=== PATIENT | female | born 1995 | race Caucasian/White ===

== ENCOUNTER 2016-07-08 14:56 | Emergency (ER) | payer OTHER ==
[~2016-07-08] VITALS: Ht 160 cm; Wt 80.3 kg
[~2016-07-08 14:56] MED LIST: AMOX500T3 PO; LXP/20 PO; VNTHFA/IN INH
[2016-07-08 15:04] VITALS: TEMP 37.3; Ht 160 cm; Wt 80.3 kg
--- NOTE | 2016-07-08 16:22 | EMERGENCY ROOM VISIT NOTE ---
History First contact with patient: 16:02 Chief Complaint: RESPIRATORY PROBLEMS Stated Complaint: UPPER RESPIRATORY PROBLEMS Nursing Triage Summary: Nasal congestion, coughing up dark green phlegm, SOB, Chest hurts. History of Present Illness The patient is a 21 year old female who presents to the Emergency Room with complaints of upper respiratory symptoms. The patient reports that she has had a cough, nasal congestion and shortness of breath for the past 2 days. She states that her cough is productive of a dark green phlegm. She states that she has had some central chest pain with cough. She rates her discomfort a 3/ 10. She is taking Tylenol at home for her symptoms without relief. She denies any fevers. She did not receive a flu vaccine this year. She denies neck pain , headache, sore throat, abdominal pain, nausea or vomiting. Review of Systems A complete 10-point Review of Systems was discussed with the patient, with pertinent positives and negatives listed in the History of Present Illness. All remaining Review of Systems questions can be considered negative unless otherwise specified. Past Medical/Surgical History Medical Problems: (1) ACUTE APPENDICITIS NOS (2) Acute otitis media, bilateral (3) Amniotic fluid leaking (4) Appendectomy (5) Dental caries (6) Headache (7) Influenza-like symptoms (8) Normal delivery at term (9) Pain, dental (10) hemorrhage, third stage, condition (11) Sore throat Family History Cancer Diabetes mellitus Heart disease Hypertension Social History Smoking Status: Current Every Day Smoker Alcohol Use: none Drug Use: none Marital Status: in relationship Housing Status: lives with significant other Occupation Status: employed Current/Historical Medications Scheduled Amoxicillin (Amoxil), 1 TAB PO TID Escitalopram Oxalate (Escitalopram Oxalate), 20 MG PO DAILY Methylprednisolone (Medrol Dosepak), 0 PO DAILY Scheduled PRN Albuterol Hfa (Ventolin Hfa), 2 PUFFS INH Q6 PRN for Shortness of Breath Allergies Coded Allergies: Azithromycin (Verified Allergy, Mild, 07/08/16) Uncoded Allergies: TOMATO SAUCE (Allergy, Intermediate, HIVES, 02/11/13) Physical Exam Vital Signs Date Time Temp Pulse Resp B/P Pulse Ox O2 Delivery O2 Flow Rate FiO2 07/08/16 18:06 80 122/81 98 07/08/16 15:06 98 Room Air 07/08/16 15:04 37.3 83 18 129/90 99 Room Air Physical Exam VITALS: Vitals are noted on the nurse's note and reviewed by myself. Vital signs stable. GENERAL: This is a 21-year-old female, in no acute distress, nondiaphoretic, well-developed well-nourished. SKIN: No rashes. HEENT: Normocephalic. PERRLA. EOMI. Nares patent. Mucous membranes moist. Neck is supple without nuchal rigidity. HEART: Regular rate and rhythm without murmurs gallops or rubs. LUNGS: Clear to auscultation bilaterally without wheezes, rales or rhonchi. No retractions or accessory muscle use. ABDOMEN: Positive bowel sounds x 4. Soft, nontender to palpation. NEURO: Patient was alert and oriented to person place and time. Medical Decision & Procedures ER Provider Diagnostic Interpretation: CHEST 2 VIEWS ROUTINE CLINICAL HISTORY: cough dyspnea COMPARISON STUDY: 04/03/2014 FINDINGS: The bones soft tissues and hemidiaphragms are normal. The cardiomediastinal silhouette is normal. The lungs are clear. The pulmonary vasculature is normal. IMPRESSION: Negative chest. Laboratory Results Test 07/08/16 16:20 Influenza Type A Antigen Neg for Influ A (NEG) Influenza Type B Antigen Neg for Influ B (NEG) Medical Decision Differential diagnosis includes pneumonia, upper respiratory infection, influenza, among others. The patient was evaluated as above. Labs were drawn and IV access was obtained. Imaging studies were performed and read by radiology as above. The patient was reassessed multiple times during their stay in the emergency department and remained in stable condition. The patient is a 21-year-old female who presents today complaining of respiratory symptoms. Her vital signs are within normal limits and her physical exam is unremarkable. Her lungs are clear. Chest x-ray showed no evidence of pneumonia. Influenza was negative. The patient likely has an acute bronchitis. She was given a prescription for amoxicillin and a Medrol Dosepak but was encouraged to wait a few days to see her symptoms improved before beginning this. She will return for worsening symptoms, otherwise will follow-up with her primary care provider. Based on the patient's presentation, lab results, and imaging studies, I feel the patient is stable for outpatient treatment. Discharge instructions were reviewed with the patient. The patient verbalized understanding of my assessment and treatment plan and was discharged home in good condition. Impression Primary Impression: Upper respiratory infection Departure Information Dispostion Home / Self-Care Condition GOOD Prescriptions Amoxicillin (AMOXIL) 500 Mg Tab 1 TAB PO TID for 7 Days, #21 TAB Prov: Bina Mills PA-C 07/08/16 Methylprednisolone (MEDROL DOSEPAK) 4 Mg [place] 0 PO DAILY, #1 PKT Prov: Bina Mills PA-C 07/08/16 Referrals Colten Palomino M.D. (PCP) Patient Instructions My [facility] Additional Instructions You were prescribed Zithromax to be taken as prescribed. This is an antibiotic. All antibiotics have the potential to cause diarrhea. Stop this medication and contact a medical provider if you were to develop any significant adverse side effects including: wheezing, shortness of breath, passing out, vomiting, or a diffuse rash. Always take antibiotics as directed and COMPLETE the ENTIRE course regardless of the improvement of your symptoms. You have been prescribed a Medrol Dosepak. This is a steroid which will help decrease your inflammation. Take the medicine as prescribed. Take the ENTIRE 6 day course of the steroids. Begin taking these medications in 2-3 days if your symptoms do not start to improve. For pain control, you can use the following [id number] medicines (if >12 yo): - Regular strength (325mg/tab) Tylenol (acetaminophen) 2 tabs every 4-6 hours as needed. Do not exceed 12 tablets in a 24 hour period. Avoid taking more than 4 grams (4000 mg) of Tylenol per day. This includes any other sources of acetaminophen you may take on a regular basis. - Regular strength (200 mg/tab) Advil (ibuprofen) 1-2 tabs every 4-6 hours as needed. Do not exceed a dose of 3200 mg per day. Return to the emergency department with worsening shortness of breath, high fevers or any other new/concerning symptoms. Problem Qualifiers Primary Impression: Upper respiratory infection URI type: unspecified URI Qualified Codes: J06.9 - Acute upper respiratory infection, unspecified
--- NOTE | 2016-07-08 16:46 | DIAGNOSTIC IMAGING REPORT ---
CHEST 2 VIEWS ROUTINE CLINICAL HISTORY: cough dyspnea COMPARISON STUDY: 04/03/2014 FINDINGS: The bones soft tissues and hemidiaphragms are normal. The cardiomediastinal silhouette is normal. The lungs are clear. The pulmonary vasculature is normal. IMPRESSION: Negative chest. Electronically signed by: Colten Miranda M.D. 07/08/2016 4:45 PM Dictated Date/Time: 07/08/2016 4:45 PM
[2016-07-08] MEDS ORDERED: METH4PAK PO (17:21)
[2016-07-08] MEDS ORDERED: AZITTAB PO (17:21)
[2016-07-08] MEDS ORDERED: AMOX500T3 PO (17:56)
[2016-07-08 18:06] VITALS: BP 122/81; PULSE 80; O2SAT 98
== END 2016-07-08 18:07 | disposition home or self-care (01) ==
LOC: C.EDB 14:57 → C.EDC 18:07
DX: J06.9 Acute upper respiratory infection, unspecified (principal); F17.210 Nicotine dependence, cigarettes, uncomplicated; Z79.899 Other long term (current) drug therapy

== ENCOUNTER 2016-12-30 05:38 | Emergency (ER) | payer OTHER ==
[~2016-12-30] VITALS: Ht 160 cm; Wt 78.9 kg
[2016-12-30 05:42] VITALS: BP 128/74; PULSE 78; TEMP 37; O2SAT 100; Ht 160 cm; Wt 78.9 kg
[2016-12-30] MEDS ORDERED: KETOROLAC TROMETHAMINE 60 MG/2 ML VIAL IM STA (05:57)
[2016-12-30] MEDS ORDERED: OXYCODONE IR HOME PACK PO ONE (06:00)
[2016-12-30] MEDS ORDERED: ACET325T96 PO (06:05)
[2016-12-30] MEDS ORDERED: VNTHFA/IN INH (06:05)
--- NOTE | 2016-12-30 06:11 | EMERGENCY ROOM VISIT NOTE ---
History First contact with patient: 05:47 Chief Complaint: BACK PAIN Stated Complaint: SEVERE LOWER BACK PAIN History of Present Illness The patient is a 21 year old female who presents to the Emergency Room with complaints of low back pain for the past week described as aching, ranging in severity 7 out of 10. Patient has tried BenGay and Motrin with minimal improvement of symptoms. Patient has been lifting her child more who is getting rather large. Patient denies fall, trauma, loss of bowel or bladder control, saddle anesthesia, IV drug abuse, fever, chills, leg weakness. Patient states movement makes it worse and nothing makes it better. No direct injury to the area. Patient denies chest pain, dyspnea, abdominal pain, urinary symptoms. Review of Systems See HPI for pertinent positives & negatives. A total of 10 systems reviewed and were otherwise negative. Past Medical/Surgical History Medical Problems: (1) ACUTE APPENDICITIS NOS (2) Acute otitis media, bilateral (3) Amniotic fluid leaking (4) Appendectomy (5) Dental caries (6) Headache (7) Influenza-like symptoms (8) Normal delivery at term (9) Pain, dental (10) hemorrhage, third stage, condition (11) Sore throat Family History Cancer Diabetes mellitus Heart disease Hypertension Social History Smoking Status: Current Every Day Smoker Alcohol Use: none Drug Use: none Marital Status: in relationship Housing Status: lives with significant other Occupation Status: employed Current/Historical Medications Scheduled Amoxicillin (Amoxil), 1 TAB PO TID Escitalopram Oxalate (Escitalopram Oxalate), 20 MG PO DAILY Scheduled PRN Albuterol Hfa (Ventolin Hfa), 2 PUFFS INH Q6 PRN for Shortness of Breath Physical Exam Vital Signs Date Time Temp Pulse Resp B/P (MAP) Pulse Ox O2 Delivery O2 Flow Rate FiO2 12/30/16 05:42 37.0 78 18 128/74 100 Room Air Physical Exam VITALS: Vitals are noted on the nurse's note and reviewed by myself. Vital signs stable. GENERAL: Pleasant female ambulating without difficulties, in no acute distress, nondiaphoretic, well-developed well-nourished. SKIN: Capillary reflex less than 2 seconds. HEENT: Normocephalic. PERRLA. EOMI. Nares patent. Mucous membranes moist. Neck is supple without nuchal rigidity. HEART: Regular rate and rhythm without murmurs gallops or rubs. LUNGS: Clear to auscultation bilaterally without wheezes, rales or rhonchi. No retractions or accessory muscle use. ABDOMEN: Positive bowel sounds x 4. Normal tympanic percussion. Soft, nontender, without masses or organomegaly. Encarnacion sign negative. No guarding or rebound tenderness. No CVA tenderness MUSCULOSKELETAL: No gross musculoskeletal defects. No pedal edema. No calf tenderness. No thoracic or lumbar tenderness on exam. Paraspinal muscles slightly tender to palpation. Negative straight leg raise. NEURO: Patient was alert and oriented to person place and time. Normal sensation to light and sharp touch. Deep tendon reflexes 2+ patella. No focal neurological deficits. Medical Decision & Procedures ED Course Prior records/ancillary studies reviewed. Triage Nursing notes reviewed. Additional history obtained from family. The patient's history was concerning for back pain. Differential diagnosis: Etiologies such as musculoskeletal, disc herniation, fracture, aortic disease, metastatic disease, cord compression, discitis, infection, renal colic, gastrointestinal, acute exacerbation of chronic back pain, sciatica, cauda equina, as well as others were entertained. Physical findings: As above. No focal neurologic findings noted. ER treatment provided: Toradol, OxyIR On reassessment the patient felt better. Diagnostics interpreted by me: deferred This appears to be consistent with lumbar strain. Patient was neurovascular and neurologically intact. She is well-appearing. She was advised to do course raking activities like yoga interpreted's and to do physical therapy. She is advised to take anti-inflammatories and to stretch the area out and to always lift properly. She is advised follow-up family care in a few days or here in the ER sooner for severe pain, numbness, tingling, difficulty ambulating , worsening signs or symptoms or as needed.. The patient's physical examination and detailed history did not reveal any red flags for back pain such as those listed in the differential diagnosis. Therefore advanced diagnostics and consultations were felt to be unwarranted. By the evaluation outlined above emergent etiologies such as fracture, aortic disease, metastatic disease, infection, renal colic, gastrointestinal, cord compression, cauda equina, as well as others were deemed relatively unlikely. The pt informed about the findings as listed above. All questions were answered and pleased with the treatment. Return instructions were outlined and the patient was discharged in stable condition. Outpatient prescription management: Oxy IR 5mg 1-2 po Q4 hrs prn HP Referral: The patient was referred back to primary care physician for follow-up in 2 to 3 days for a recheck of the current condition. Medical Decision As above Medication Reconcilliation Current Medication List: was personally reviewed by me Blood Pressure Screening Patient's blood pressure: Normal blood pressure Impression Primary Impression: Strain of lumbar region Departure Information Referrals No Doctor, Assigned (PCP) Patient Instructions [facility] Problem Qualifiers Primary Impression: Strain of lumbar region Encounter type: initial encounter Qualified Codes: S39.012A - Strain of muscle, fascia and tendon of lower back, initial encounter
== END 2016-12-30 06:10 | disposition home or self-care (01) ==
LOC: C.EDB 05:39
DX: S39.012A Strain of muscle, fascia and tendon of lower back, initial encounter (principal); X58.XXXA Exposure to other specified factors, initial encounter; F17.200 Nicotine dependence, unspecified, uncomplicated; Z86.19 Personal history of other infectious and parasitic diseases; Z79.899 Other long term (current) drug therapy; Z80.9 Family history of malignant neoplasm, unspecified; Z83.3 Family history of diabetes mellitus; Z82.49 Family history of ischemic heart disease and other diseases of the circulatory system

== ENCOUNTER → 2017-05-01 | Outpatient (CLI) | payer OTHER ==
[~2017-05-01] MED LIST changes: +ACET325T96 PO; -AMOX500T3 PO
[2017-05-01 16:28] LABS: GTGD 50 Grams
== END | disposition home or self-care (01) ==
LOC: C.LAB1850 14:50
PROVIDERS: ATTEND Obstetrics & Gynecology
DX: Z34.82 Encounter for supervision of other normal pregnancy, second trimester (principal)

== ENCOUNTER → 2017-08-01 | Outpatient (CLI) | payer OTHER ==
[~2017-08-01] MED LIST changes: +ACET-1693 PO; -ACET325T96 PO
[2017-08-01 13:16] LABS: HEMATOCRIT 31.8 % (37-47); HEMOGLOBIN 10.8 g/dL (12.0-16.0)
== END | disposition home or self-care (01) ==
LOC: C.LAB1850 11:52
PROVIDERS: ATTEND Obstetrics & Gynecology
DX: Z34.83 Encounter for supervision of other normal pregnancy, third trimester (principal)

== ENCOUNTER → 2017-09-14 | Outpatient (CLI) | payer OTHER ==
[~2017-09-14] MED LIST changes: +AMOX875T PO; +FERR1TAB23 PO; +PRENTAB26 PO
== END | disposition home or self-care (01) ==
LOC: C.LABSPEC 15:49
PROVIDERS: ATTEND Obstetrics & Gynecology
DX: Z34.83 Encounter for supervision of other normal pregnancy, third trimester (principal); Z3A.00 Weeks of gestation of pregnancy not specified

== ENCOUNTER 2017-09-16 17:31 | Outpatient (CLI) | payer OTHER ==
[~2017-09-16] VITALS: Ht 160 cm; Wt 78.5 kg
[~2017-09-16 17:31] MED LIST changes: -AMOX875T PO; -FERR1TAB23 PO; -PRENTAB26 PO
[2017-09-16 18:31] VITALS: Ht 160 cm; Wt 78.5 kg
[2017-09-16] MEDS ORDERED: FERR1TAB23 PO (18:31)
[2017-09-16] MEDS ORDERED: PRENTAB26 PO (18:31)
[2017-09-16] MEDS ORDERED: AMOX875T PO (20:51)
== END 2017-09-16 18:28 | disposition other institution (70) ==
LOC: C.OPB 17:31 → C.LD 17:32 → C.OPB 18:28
PROVIDERS: ATTEND Obstetrics & Gynecology
DX: O99.89 Other specified diseases and conditions complicating pregnancy, childbirth and the puerperium (principal); R51 Headache; Z3A.36 36 weeks gestation of pregnancy

== ENCOUNTER 2017-09-16 18:35 | Emergency (ER) | payer OTHER ==
[~2017-09-16] VITALS: Ht 160 cm; Wt 78.6 kg
[~2017-09-16 18:35] MED LIST changes: +FERR1TAB23 PO; +PRENTAB26 PO
[2017-09-16 18:39] VITALS: TEMP 36.6; Ht 160 cm; Wt 78.6 kg
--- NOTE | 2017-09-16 18:56 | EMERGENCY ROOM VISIT NOTE ---
History Report prepared by Bowen: Henrietta Berman Under the Supervision of: Dr. Duy Shea D.O. First contact with patient: 18:52 Chief Complaint: FACIAL PAIN/INJURY Stated Complaint: SWELLING ON RIGHT SIDE OF FACE, HEADACHE, VISION History of Present Illness The patient is a 22 year old female who presents to the Emergency Room with complaints of right-sided facial swelling. This is been present for the past 2 days. She notes that she has intermittent headaches for the past 2 days along with intermittent flashing lights. She is 8 months months . Headache currently is a 1 out of 10. She was up on OB floor and was placed on the monitor and had a urine done without protein. She was sent down here for further evaluation. She has no dental pain. Able to swallow without difficulty. No fevers. No other chest pain, shortness breath, nausea vomiting or diarrhea. No vaginal bleeding. She does intermittently see spots in her visual thompson but this is only been present over the past 2 days. Per the patient she was sent down here to rule out possible preeclampsia. Nothing makes the swelling better or worse. She has no other complaints. No dental pain. 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 Review of Systems See HPI for pertinent positives & negatives. A total of 10 systems reviewed and were otherwise negative. Past Medical & Surgical Medical Problems: (1) 36 to 37 weeks gestation of (2) ACUTE APPENDICITIS NOS (3) Acute otitis media, bilateral (4) Amniotic fluid leaking (5) Appendectomy (6) Dental caries (7) Headache (8) Headache (9) Influenza-like symptoms (10) Normal delivery at term (11) Pain, dental (12) hemorrhage, third stage, condition (13) Sore throat Family History Cancer Diabetes mellitus Heart disease Hypertension Social History Smoking Status: Current Every Day Smoker Alcohol Use: none Drug Use: none Marital Status: in relationship Housing Status: lives with significant other Occupation Status: employed Current/Historical Medications Scheduled Amoxicillin & Pot Clavulanate (Augmentin 875-125 mg), 875 MG PO BID Ferrous Sulfate (Iron), PO DAILY Multivit/Min/Iron/Fol Ac/Pren ( Vitamin), 1 TAB PO DAILY Scheduled PRN Acetaminophen Tab (Tylenol), 650 MG PO DIRECTED PRN for Pain Allergies Coded Allergies: Azithromycin (Verified Allergy, Mild, 09/16/17) Uncoded Allergies: TOMATO SAUCE (Allergy, Intermediate, HIVES, 02/11/13) Physical Exam Vital Signs Date Time Temp Pulse Resp B/P (MAP) Pulse Ox O2 Delivery O2 Flow Rate FiO2 09/16/17 20:58 68 18 107/60 100 09/16/17 20:20 68 18 107/60 100 Room Air 09/16/17 18:39 36.6 96 20 108/67 99 Room Air Physical Exam GENERAL: Sitting up in bed, alert, well appearing, well nourished, no distress, non-toxic EYE EXAM: normal conjunctiva. PERRL and EOM's intact. FACE: right sided facial swelling. No erythema or induration. OROPHARYNX: no exudate, no erythema, lips, buccal mucosa, and tongue normal and mucous membranes are moist. Poor dentition. NECK: supple, no nuchal rigidity, no adenopathy, non-tender LUNGS: Clear to auscultation. Normal chest wall mechanics HEART: no murmurs, S1 normal and S2 normal ABDOMEN: abdomen soft, non-tender, normo-active bowel sounds, no masses, no rebound or guarding. Gravid uterus up to xiphoid BACK: Back is symmetrical on inspection and there is no deformity, no midline tenderness, no CVA tenderness. SKIN: no rashes and no bruising UPPER EXTREMITIES: upper extremities are grossly normal. LOWER EXTREMITIES: Calves are equal bilaterally NEURO EXAM: Normal sensorium, cranial nerves II-XII intact, normal speech, no weakness of arms, no weakness of legs. No drift. Finger to nose intact. Gross sensation intact. Medical Decision & Procedures ER Provider Diagnostic Interpretation: Radiology results as stated below per my review and the radiologist's interpretation: FACIAL BONES-MXILLOFAC WITHOUT CT DOSE: 603.08 mGy.cm HISTORY: Edema swelling r side of face TECHNIQUE: Multiaxial CT images of the maxillofacial region were performed and reformatted in the coronal plane without the use of contrast. A dose lowering technique was utilized adhering to the principles of ALARA. COMPARISON: None. FINDINGS: The visualized cervical spine, skull base, pterygoid plates, nasal bones, lamina papyracea, orbital floors, mandible, and zygomatic arches are intact. No fractures. The orbits are unremarkable. IMPRESSION: No fractures within the maxillofacial region. No abnormal mass or collection. Cortical margins of the mandible and maxilla are unremarkable The above report was generated using voice recognition software. It may contain grammatical, syntax or spelling errors. Electronically signed by: Colten Miranda M.D. 09/16/2017 7:29 PM Laboratory Results 09/16/17 19:04 Red Blood Count 4.07, Mean Corpuscular Volume 87.7, Mean Corpuscular Hemoglobin 29.5, Mean Corpuscular Hemoglobin Concent 33.6, Mean Platelet Volume 11.0, Neutrophils (%) (Auto) 72.3, Lymphocytes (%) (Auto) 21.1, Monocytes (%) (Auto) 5.0, Eosinophils (%) (Auto) 0.8, Basophils (%) (Auto) 0.2, Neutrophils # (Auto) 9.23, Lymphocytes # (Auto) 2.69, Monocytes # (Auto) 0.64, Eosinophils # (Auto) 0.10, Basophils # (Auto) 0.02 09/16/17 19:04 Test 09/16/17 19:04 09/16/17 20:20 White Blood Count 12.76 K/uL (4.8-10.8) Red Blood Count 4.07 M/uL (4.2-5.4) Hemoglobin 12.0 g/dL (12.0-16.0) Hematocrit 35.7 % (37-47) Mean Corpuscular Volume 87.7 fL (80-100) Mean Corpuscular Hemoglobin 29.5 pg (25-34) Mean Corpuscular Hemoglobin Concent 33.6 g/dl (32-36) Platelet Count 292 K/uL (130-400) Mean Platelet Volume 11.0 fL (7.4-10.4) Neutrophils (%) (Auto) 72.3 % Lymphocytes (%) (Auto) 21.1 % Monocytes (%) (Auto) 5.0 % Eosinophils (%) (Auto) 0.8 % Basophils (%) (Auto) 0.2 % Neutrophils # (Auto) 9.23 K/uL (1.4-6.5) Lymphocytes # (Auto) 2.69 K/uL (1.2-3.4) Monocytes # (Auto) 0.64 K/uL (0.11-0.59) Eosinophils # (Auto) 0.10 K/uL (0-0.5) Basophils # (Auto) 0.02 K/uL (0-0.2) RDW Standard Deviation 41.9 fL (36.4-46.3) RDW Coefficient of Variation 13.0 % (11.5-14.5) Immature Granulocyte % (Auto) 0.6 % Immature Granulocyte # (Auto) 0.08 K/uL (0.00-0.02) Anion Gap 5.0 mmol/L (3-11) Est Creatinine Clear Calc Drug Dose 138.9 ml/min Estimated GFR () 146.3 Estimated GFR (Non- 126.2 BUN/Creatinine Ratio 9.2 (10-20) Calcium Level 8.3 mg/dl (8.5-10.1) Total Bilirubin 0.3 mg/dl (0.2-1) Direct Bilirubin < 0.1 mg/dl (0-0.2) Aspartate Amino Transf (AST/SGOT) 24 U/L (15-37) Alanine Aminotransferase (ALT/SGPT) 27 U/L (12-78) Alkaline Phosphatase 194 U/L (45-117) Total Protein 6.7 gm/dl (6.4-8.2) Albumin 2.7 gm/dl (3.4-5.0) Lipase 68 U/L (73-393) Urine Color YELLOW Urine Appearance CLEAR (CLEAR) Urine pH 7.5 (4.5-7.5) Urine Specific [place] 1.011 (1.000-1.030) Urine Protein NEG (NEG) Urine Glucose (UA) NEG (NEG) Urine Ketones TRACE (NEG) Urine Occult Blood NEG (NEG) Urine Nitrite NEG (NEG) Urine Bilirubin NEG (NEG) Urine Urobilinogen NEG (NEG) Urine Leukocyte Esterase LARGE (NEG) Urine WBC (Auto) 10-30 /hpf (0-5) Urine RBC (Auto) 0-4 /hpf (0-4) Urine Hyaline Casts (Auto) 1-5 /lpf (0-5) Urine Epithelial Cells (Auto) >30 /lpf (0-5) Urine Bacteria (Auto) 1+ (NEG) Medications Administered Medications (Trade) Dose Ordered Sig/Melissa Route Start Time Stop Time Status Last Admin Dose Admin Amoxicillin/ Clavulanate Potassium (Augmentin Tab) 875 mg ONE ONCE PO 09/16/17 21:00 09/16/17 21:01 DC 09/16/17 20:58 875 MG ED Course ED COURSE: Vital signs were reviewed and showed normal The patients medical record was reviewed The above diagnostic studies were performed and reviewed. ED treatments and interventions as stated above. 1855: The patient was evaluated in room C9. A complete history and physical examination was performed. 2100: Augmentin Tab 875 mg PO 2155: Upon reevaluation, the patient is feeling better.I discussed my findings with the patient and she understands and agrees with the treatment plan. Based on the patients age, coexisting illnesses, exam and lab findings the decision to treat as an outpatient was made. The patient remained stable while under my care. The patient appeared well at the time of discharge. Medical Decision Differential diagnoses include preeclampsia, Bartolome's angina, parotidis, cellulitis, allergic reaction. Patient is a 22-year-old female who presents the ER referred in by [employer] for swelling of the right side of her face. She has she notices 2 days ago. No other exacerbating or remitting factors. No dental pain. CBC with mild leukocytosis. BMP along with LFTs, bilirubin lipase is unremarkable. UA was contaminated with multiple epithelial cells. CT of the face was unremarkable although performed without contrast. Her shots are up-to-date. Do not believe that this is mumps. Do favor likely secondary to the parotid gland. Clearly not dental as she is nontender. Placed on Augmentin. Rediscussed with OB. Will follow up as an outpatient. Discussed with Pt concerning signs and symptoms to watch out for. Pt was instructed to follow up with their PCP and discussed with the patient their option to return to the ED at anytime for persistent or worsening symptoms. The appropriate anticipatory guidance and out- patient management, including indications for return to the emergency department , were explained at length to the patient and understood. Medication Reconcilliation Current Medication List: was personally reviewed by me Impression Primary Impression: Facial swelling Scribe Attestation The scribe's documentation has been prepared under my direction and personally reviewed by me in its entirety. I confirm that the note above accurately reflects all work, treatment, procedures, and medical decision making performed by me. Departure Information Prescriptions Amoxicillin & Pot Clavulanate (Augmentin 875-125 mg) 1 Tab Tab 875 MG PO BID for 10 Days, TAB Prov: Duy Shea, DO 09/16/17 Referrals No Doctor, Assigned (PCP) Patient Instructions My [facility] Additional Instructions Please follow up with your primary care doctor with in the next 24 hours. Any worsening of your symptoms, please return to the ED immediately. This includes any fevers greater than 100.4, worsening pain, chest pain, shortness breath, persistent nausea, vomiting, unable to eat or drink, or any other concerning signs or symptoms from your standpoint. Please take the antibiotics as prescribed. Any pain with movement of the eye or swelling around her eye please return to the ER immediately. Any trouble swallowing please return to ER as well.
[2017-09-16 19:19] LABS: BASO % 0.2 %; BASO ABS # 0.02 K/uL (0-0.2); EOS % 0.8 %; HEMATOCRIT 35.7 % (37-47); IG# 0.08 K/uL (0.00-0.02); LYMPH % 21.1 %; LYMPH ABS # 2.69 K/uL (1.2-3.4); MEAN CELL VOLUME 87.7 fL (80-100); MEAN CORPUSCULAR HEMOGLOBIN 29.5 pg (25-34); MEAN CORPUSCULAR HGB CONC 33.6 g/dl (32-36); MONO ABS # 0.64 K/uL (0.11-0.59); NEUT % 72.3 %; NEUT ABS # 9.23 K/uL (1.4-6.5); PLATELET COUNT 292 K/uL (130-400); RED CELL DISTRIBUTION WIDTH SD 41.9 fL (36.4-46.3); WHITE BLOOD COUNT 12.76 K/uL (4.8-10.8)
--- NOTE | 2017-09-16 19:30 | DIAGNOSTIC IMAGING REPORT ---
FACIAL BONES-MXILLOFAC WITHOUT CT DOSE: 603.08 mGy.cm HISTORY: Edema swelling r side of face TECHNIQUE: Multiaxial CT images of the maxillofacial region were performed and reformatted in the coronal plane without the use of contrast. A dose lowering technique was utilized adhering to the principles of ALARA. COMPARISON: None. FINDINGS: The visualized cervical spine, skull base, pterygoid plates, nasal bones, lamina papyracea, orbital floors, mandible, and zygomatic arches are intact. No fractures. The orbits are unremarkable. IMPRESSION: No fractures within the maxillofacial region. No abnormal mass or collection. Cortical margins of the mandible and maxilla are unremarkable The above report was generated using voice recognition software. It may contain grammatical, syntax or spelling errors. Electronically signed by: Colten Miranda M.D. 09/16/2017 7:29 PM Dictated Date/Time: 09/16/2017 7:26 PM
[2017-09-16 19:37] LABS: ALBUMIN 2.7 gm/dl (3.4-5.0); ALT/SGPT 27 U/L (12-78); AST/SGOT 24 U/L (15-37); BLOOD UREA NITROGEN 6 mg/dl (7-18); CALCIUM 8.3 mg/dl (8.5-10.1); CARBON DIOXIDE 25 mmol/L (21-32); CREATININE 0.62 mg/dl (0.60-1.20); GLUCOSE 77 mg/dl (70-99); LIPASE 68 U/L (73-393); POTASSIUM 3.5 mmol/L (3.5-5.1); SODIUM 137 mmol/L (136-145)
[2017-09-16 19:40] LABS: ALKALINE PHOSPHATASE 194 U/L (45-117); TOTAL PROTEIN 6.7 gm/dl (6.4-8.2)
[2017-09-16] MEDS ORDERED: AMOX875T PO (20:51)
[2017-09-16 20:58] VITALS: BP 107/60; PULSE 68; O2SAT 100
[2017-09-16] MEDS ORDERED: AMOXICILLIN/CLAVULANATE TAB 875 MG TAB PO ONE (21:00)
== END 2017-09-16 20:59 | disposition home or self-care (01) ==
LOC: C.EDB 18:36 → C.EDC 20:59
DX: R22.0 Localized swelling, mass and lump, head (principal); R51 Headache; F17.210 Nicotine dependence, cigarettes, uncomplicated; Z80.9 Family history of malignant neoplasm, unspecified; Z83.3 Family history of diabetes mellitus; Z82.49 Family history of ischemic heart disease and other diseases of the circulatory system; Z79.899 Other long term (current) drug therapy; Z88.1 Allergy status to other antibiotic agents; Z91.018 Allergy to other foods

== ENCOUNTER 2017-10-09 17:44 | Inpatient (IN) | payer OTHER ==
[~2017-10-09] VITALS: Ht 160 cm; Wt 78.6 kg
[~2017-10-09 17:44] MED LIST changes: -LXP/20 PO; -VNTHFA/IN INH
[2017-10-09] MEDS ORDERED: LACTATED RINGER'S 1000ML 1,000 ML IV SCH (18:37)
[2017-10-09] MEDS ORDERED: LACTATED RINGER'S 1000ML 1,000 ML IV PRN (18:37)
[2017-10-09 19:01] LABS: HEMATOCRIT 34.1 % (37-47); HEMOGLOBIN 11.4 g/dL (12.0-16.0); MEAN CORPUSCULAR HEMOGLOBIN 28.1 pg (25-34); MEAN CORPUSCULAR HGB CONC 33.4 g/dl (32-36); MEAN PLATELET VOLUME 10.9 fL (7.4-10.4); PLATELET COUNT 244 K/uL (130-400); RED CELL DISTRIBUTION WIDTH CV 13.1 % (11.5-14.5); RED CELL DISTRIBUTION WIDTH SD 39.8 fL (36.4-46.3); WHITE BLOOD COUNT 14.46 K/uL (4.8-10.8)
[2017-10-09 19:27] VITALS: Ht 160 cm; Wt 78.6 kg
[2017-10-09] MEDS ORDERED: FENTANYL CITRATE INJ 50 MCG/1 ML 2 ML VIAL ONE (20:20)
[2017-10-09] MEDS ORDERED: BUPIVACAINE 0.25% 30 ML VIAL ONE (20:20)
[2017-10-09] MEDS ORDERED: EpHEDrine SULFATE INJ 50 MG/ML AMP ONE (20:20)
[2017-10-09] MEDS ORDERED: FENTANYL 2MCG/ML ROPIV 1.25MG/ML 100ML BAG ONE (20:21)
[2017-10-09] MEDS ORDERED: LACTATED RINGER'S 1000ML 500 ML IV PRN (21:02)
[2017-10-09] MEDS ORDERED: NALOXONE HCL INJ 1 MG in SODIUM CHLORIDE 0.9% 1000ML 1,000 ML IV PRN (21:02)
[2017-10-09] MEDS ORDERED: NALOXONE HCL INJ 0.4 MG/1 ML VIAL/CARP IV PRN (21:15)
[2017-10-09] MEDS ORDERED: DiphenhydrAMINE HCL 50 MG/ML VIAL IV PRN (21:15)
[2017-10-09] MEDS ORDERED: ONDANSETRON INJ 2 MG/ML 2 ML VIAL IV PRN (21:15)
[2017-10-09] MEDS ORDERED: EpHEDrine SULFATE INJ 50 MG/ML AMP IV PRN (21:15)
[2017-10-09] MEDS ORDERED: FENTANYL 2MCG/ML ROPIV 1.25MG/ML 100ML BAG EPI PRN (21:15)
[2017-10-09] MEDS ORDERED: NALBUPHINE HCL INJ 10 MG/ML AMP IV PRN (21:15)
[2017-10-09] MEDS ORDERED: OXYTOCIN 30 UNITS/500ML NSS IV ONE (23:21)
[2017-10-09] MEDS ORDERED: OXYTOCIN INJ 20 UNITS in LACTATED RINGER'S 1000ML 1,000 ML IV SCH (23:38)
[2017-10-09] MEDS ORDERED: LANOLIN OINT EXT PRN (23:45)
[2017-10-09] MEDS ORDERED: ACETAMINOPHEN 325 MG TAB PO PRN (23:45)
[2017-10-09] MEDS ORDERED: HYDROCORTISONE ACETATE 25 MG SUPP PR PRN (23:45)
[2017-10-09] MEDS ORDERED: BENZOCAINE 20% AER SPR 82.5 GM CAN EXT PRN (23:45)
[2017-10-09] MEDS ORDERED: SUPERCREAM 0.870 % 15GM JAR EXT PRN (23:45)
[2017-10-09] MEDS ORDERED: OXYTOCIN 30 UNITS/500ML NSS IV PRN (23:45)
--- NOTE | 2017-10-09 23:55 | DELIVERY SUMMARY ---
DATE OF OPERATION: 10/09/2017 The patient dilated to complete and pushed to deliver a viable male , Apgars 8 and 9 via over a small second-degree perineal laceration. Mouth and nose were bulb-suctioned at the perineum. Shoulders and body was delivered with ease. The infant was vigorous and crying at . The cord was clamped at 30 seconds of life and to maternal abdomen where the cord was doubly clamped and then cut. Placenta was delivered spontaneously and intact, 3-vessel cord. Hemostasis was achieved with dilute Pitocin and uterine massage. Cervix and sulci intact. Laceration was repaired in the usual fashion with 3-0 Vicryl. Bladder drained under sterile conditions for 300 mL of urine. EBL 300 mL. Mother and baby stable in recovery. I attest to the content of the Intraoperative Record and any orders documented therein. Any exception s are noted below.
[2017-10-10] VITALS (7 sets, daily range): BP systolic 98–130; BP diastolic 56–82; PULSE 50–70; TEMP 36.3–36.9; O2SAT 95–98
[2017-10-10] MEDS ORDERED: CALCIUM CARBONATE 500 MG CHEWABLE ONE (01:05)
[2017-10-10] MEDS ORDERED: NURSING VERBAL MED ORDER ONE (01:15)
--- NOTE | 2017-10-10 03:36 | Anesthesia Procedure Note ---
Anesthesia Epidural Removal Nt Date & Time October 10, 2017 at 03:35 Vital Signs Pain Intensity: 8.0 Notes Mental Status: alert / awake / arousable, participated in evaluation Nausea / Vomiting: adequately controlled Pain: adequately controlled Airway Patency, RR, SpO2: stable & adequate BP & HR: stable & adequate Hydration State: stable & adequate Neuraxial Anesthesia: was administered, sensory block is resolving Anesthetic Complications: no major complications apparent, pt satisfied with anesthetic care Epidural: removed without complications, with tip intact
--- NOTE | 2017-10-10 06:11 | Progress Note ---
Subjective October 10, 2017. Subjective conversation w/ patient, physical exam Ambulation: ambulating normally Voiding: no voiding problems Diet Tolerance: Regular Diet Lochia: Small Feeding Type: Bottle Feeding Pain: no pain issues. Objective Vital Signs Date Time Temp Pulse Resp B/P (MAP) Pulse Ox O2 Delivery O2 Flow Rate FiO2 10/10/17 04:00 36.8 67 18 99/56 (70) 95 Room Air 10/10/17 02:20 95 Room Air 10/10/17 02:20 36.9 55 16 106/67 (80) 95 Room Air Physical Exam General Appearance: WELL-APPEARING, WD/WN, NO APPARENT DISTRESS Respiratory/Chest: lungs clear Cardiovascular: regular rate, rhythm Abdomen: non tender, soft Fundus: Firm, Relation to Umbilicus (2 down) Extremities: non-tender Laboratory Results Last 24 Hours Test 10/09/17 18:53 10/10/17 04:44 White Blood Count 14.46 K/uL Red Blood Count 4.06 M/uL Hemoglobin 11.4 g/dL Hematocrit 34.1 % Mean Corpuscular Volume 84.0 fL Mean Corpuscular Hemoglobin 28.1 pg Mean Corpuscular Hemoglobin Concent 33.4 g/dl RDW Standard Deviation 39.8 fL RDW Coefficient of Variation 13.1 % Platelet Count 244 K/uL Mean Platelet Volume 10.9 fL Assessment and Plan Problem List Medical Problems: (1) Lumbar strain Status: Acute (2) Strain of lumbar region Status: Acute (3) Tobacco use disorder Status: Acute (4) Upper respiratory infection Status: Acute (5) Viral bronchitis Status: Acute Post- Day#: 1 Continue Routine Care: stable, routine care.
--- NOTE | 2017-10-10 06:33 | Discharge Instructions ---
Discharge Instructions Date of Service October 10, 2017. Admission Reason for Admission: Check Labor Discharge Discharge Diagnosis / Problem: Vaginal Delivery Discharge Goals Goal(s): Routine recovery after delivery Medications Continue Dispensed Medications: supercream, dermaplast, tucks, lansinoh Activity Recommendations Activity Limitations: per Instructions/Follow-up section . Instructions / Follow-Up Instructions / Follow-Up ACTIVITY RECOMMENDATIONS: * Gradual return to full activity over the next 2-3 weeks. * No lifting - nothing heavier than baby over the next 2-3 weeks. * Do not engage in vigorous exercise, sexual activity or sports until cleared by your physician. * Do not drive or operate any motorized equipment until cleared by your physician. * You may shower/bathe daily. MEDICATIONS: For discomfort or pain, you may use Acetaminophen (Tylenol), Ibuprofen (Advil), or Naproxen (Aleve) following the package directions. For constipation you may use Colace following the package directions. BREAST CARE: If you are not breast feeding: * Wear a supportive bra 24 hours a day for one to two weeks. * Avoid stimulating your breasts and nipples as much as possible during the first few weeks after delivery. * When taking a shower, have the warm water hit your back, not breasts. * When your breasts feel full, apply ice packs. Usually three to four times a day helps ease the discomfort. * Take a mild pain medication (Tylenol / Motrin) when you are uncomfortable. If breast feeding: * Use breast milk to lubricate nipples. Lansinoh cream may be used for sore nipples. You do not need to remove cream prior to breast feeding. If using a different brand of cream, check the label for directions regarding removal of cream prior to nursing. * Wear a supportive bra. * If having problems with breasts or breast feeding, call a clinical services consultant or your health care provider. EPISIOTOMY CARE: After delivery, if you have an episiotomy (stitches), the following steps will ease discomfort and aid healing. * For the first 24 hours after delivery, place ice packs next to your episiotomy to help reduce swelling. * After the first 24 hour-period, sitz baths, either portable or in the tub, are suggested. A shower with a shower arm sprayed over the episiotomy may be comforting. * Rosita care should be done after each voiding and bowel movement. Squirt warm water from a plastic bottle over the perineum (region of the body between the anus and urinary opening) and pat dry. * Use Dermoplast to ease discomfort. Shake container. Maxbass directly over the episiotomy. Place a Tucks on a clean sanitary pad next to your episiotomy. SPECIAL CARE INSTRUCTIONS: When you are discharged from the hospital, it is important for you to follow the instructions listed below: * During the first week at home, you should be able to care for yourself and your baby. In addition, the usual light household activities are encouraged. * Limit your activities to the way you feel. Do not try to clean the house or move furniture. Be sensible. * If you actively engage in sports and have done so up until the time of your delivery, you may resume these activities as soon as you feel able. This may take up to one month or even longer. Use good judgment. * Continue to take your vitamins for at least six weeks after the of your baby. * Your diet need not be limited unless you were on a special diet before your delivery. Breast-feeding mothers need around 2500 calories per day and at least 64-80 ounces of fluid per day (8 to 10 glasses). * You should eat foods from the four major food groups. Crash diets or fad diets are to be avoided. Eating lean meats, fresh fruits and vegetables, low-fat dairy products, high fiber foods and a regular exercise program, will help you get back to your pre- weight without putting your health at risk. * Constipation is sometimes a problem after delivery. Take a mild laxative as needed. If breast feeding, Milk of Magnesia is acceptable to use. You may use a suppository or Fleets enema if no episiotomy. * A daily shower or tub bath is suggested. Be sure to thoroughly and gently dry the perineum. * A bloody vaginal discharge will usually continue until around four weeks post . A small amount of bleeding may continue for as long as six weeks. Vaginal discharge changes from the bright red bleeding after delivery to pink then brownish and finally yellowish-pink before becoming white and disappearing. * Bleeding may increase with activity. Your first period may come in 4-8 weeks. If you are breast feeding, your period may be delayed even longer. * [place] (sex) can begin whenever both you and your partner feel comfortable and do not have any form of genital infection. It is recommended that you wait at least six weeks for internal and external healing to occur. If you have questions, please talk to your health care practitioner. A condom should be used to prevent infection and . * Foreplay, gentle intercourse and lubrication is very important the first several times to prevent pain. A water-based lubricant such as K-Y jelly or Astroglide may be used. * If you have RH negative blood and your baby is RH positive, you will receive RHOGAM by injection prior to discharge. The nurse will give you a card to keep with you that has the date and place that you received RHOGAM after delivery. * During your care, you had a Rubella screen done to check for the presence of rubella antibodies in your blood. If your test was negative, you will receive a Rubella vaccine prior to discharge. This vaccine may cause a fever, soreness at the injection site and flu-like symptoms. If these symptoms persist, notify your health care practitioner. is not advised for one month after a Rubella vaccine. * Verbalizes understanding of car seat law as reviewed with patient nursing. * Car Seat hand-out given and reviewed with patient by nursing. * Shaken baby information reviewed with patient by nursing. Call you doctor if: * Heavy bleeding (saturating several pads an hour) or passing clots the size of your fist. * A fever >101 degrees F (38.3 degrees C) on two occasions four hours apart and /or chills. * Unusual pain in the pelvic or vaginal areas. * "Baby Blues" lasting longer than two weeks. If you have any questions or concerns, call your health care practitioner at . FOLLOW UP VISIT: * Please call the office at to schedule a 6 week examination. It is important you keep this appointment. It is important for you to make arrangements for either yearly or twice yearly check-ups thereafter. Current Hospital Diet Patient's current hospital diet: Regular OB Diet Discharge Diet Recommended Diet: Regular Diet Pending Studies Studies pending at discharge: no Medical Emergencies . Who to Call and When: Medical Emergencies: If at any time you feel your situation is an emergency, please call 911 immediately. . Non-Emergent Contact Non-Emergency issues call your: Primary Care Provider . . "Provider Documentation" section prepared by Mojgan Obrien. .
[2017-10-10] MEDS: IBUPROFEN 600 MG TAB PO PRN ×3 (06:42→20:39)
[2017-10-10 06:49] LABS: HEMATOCRIT 33.7 % (37-47)
[2017-10-10] MEDS: DOCUSATE SODIUM 100 MG CAP PO SCH ×2 (07:57→20:14)
[2017-10-10] MEDS: OXYCODONE/ACETAMINOPHEN 5-325 TAB PO PRN ×3 (07:59→21:42)
[2017-10-11] MEDS: IBUPROFEN 600 MG TAB PO PRN (03:33)
[2017-10-11] MEDS: OXYCODONE/ACETAMINOPHEN 5-325 TAB PO PRN (04:22)
--- NOTE | 2017-10-11 06:44 | Progress Note ---
Subjective October 11, 2017. Subjective conversation w/ patient Ambulation: ambulating normally Voiding: no voiding problems Diet Tolerance: Regular Diet Lochia: Small Feeding Type: Bottle Feeding Pain: 2/10 cramping abdominal pain Review of Systems Constitutional: No fever, No chills Respiratory: No shortness of breath Cardiac: No chest pain Abdomen: No nausea, No vomiting Objective Vital Signs Date Time Temp Pulse Resp B/P (MAP) Pulse Ox O2 Delivery O2 Flow Rate FiO2 10/10/17 23:10 36.8 55 16 112/66 (81) 98 Room Air 10/10/17 23:10 Room Air 10/10/17 20:15 Room Air 10/10/17 20:15 36.6 70 16 130/82 (98) 97 Room Air 10/10/17 16:00 Room Air 10/10/17 16:00 36.7 50 16 109/71 (84) Room Air 10/10/17 11:50 36.5 60 20 98/63 (75) 10/10/17 07:39 36.3 58 18 108/67 (81) Room Air Physical Exam General Appearance: WELL-APPEARING, WD/WN, NO APPARENT DISTRESS Abdomen: soft Fundus: Firm, Tender, Relation to Umbilicus (2 below u) Extremities: no pedal edema, no calf tenderness Assessment and Plan Problem List Medical Problems: (1) Lumbar strain Status: Acute (2) Strain of lumbar region Status: Acute (3) Tobacco use disorder Status: Acute (4) Upper respiratory infection Status: Acute (5) Viral bronchitis Status: Acute Post- Day#: 2 Continue Routine Care: 22F s/p NVD day 2 - O+, Rubella Immune, GBS -ve - pt doing well clinically - Vital signs reviewed and WNL - Hemoglobin reviewed. 11.4 -> 11 - Encourage ambulation, monitor and control pain with Motrin PRN - Pt ready for d/c today and counselled on discharge instructions Resident Physician Supervision Note: I was present with Dr. Obrien during the history and exam. I discussed the case with the resident and agree with the findings and plan as documented in the note. Any exceptions or clarifications are listed here: PPD#2 doing well . Anticipate discharge home. Documented By: Lillian Nelson Resident Tracking Resident Involvement: Resident Care Provided Care Provided: OB Delivery
[2017-10-11 07:45] VITALS: BP 112/73; PULSE 41; TEMP 36.8
[2017-10-11] MEDS: DOCUSATE SODIUM 100 MG CAP PO SCH (07:54)
[2017-10-11] MEDS ORDERED: DIPHTHERIA/TETANUS/PERTUSSIS 0.5 ML SYR/VIAL IM. ONE (09:00)
[2017-10-11 12:51] VITALS: BP_DIAS 73; PULSE 41; TEMP 36.8
== END 2017-10-11 12:50 | disposition home or self-care (01) | DRG 775 ==
LOC: C.OPB 17:44 → C.LD 17:44 → C.OPB 18:39 → C.LD 18:39 → C.OBG 10-10 01:55
PROVIDERS: ADMIT Obstetrics & Gynecology; ATTEND Obstetrics & Gynecology
PROC: 10E0XZZ Delivery of Products of Conception, External Approach (ICD-10-PCS; principal; 2017-10-09)
PROC: 0KQM0ZZ Repair Perineum Muscle, Open Approach (ICD-10-PCS; principal; 2017-10-09)
DX: O70.1 Second degree perineal laceration during delivery (principal); O99.334 Smoking (tobacco) complicating childbirth; O9A.22 Injury, poisoning and certain other consequences of external causes complicating childbirth; S39.012A Strain of muscle, fascia and tendon of lower back, initial encounter; J20.9 Acute bronchitis, unspecified; Z37.0 Single live birth; Z3A.39 39 weeks gestation of pregnancy; O99.52 Diseases of the respiratory system complicating childbirth; X58.XXXA Exposure to other specified factors, initial encounter; Y92.89 Other specified places as the place of occurrence of the external cause

== ENCOUNTER 2019-03-06 08:35 | Inpatient (IN) ==
[2019-03-06] MEDS ORDERED: PENICILLIN G POTASSIUM 3 MU in DEXTROSE 5% 100 ML IV PRN (08:48)
[2019-03-06] MEDS ORDERED: LACTATED RINGER'S 1,000 ML IV PRN (08:48)
[2019-03-06] MEDS ORDERED: BUPIVACAINE 0.25% 30 ML VIAL ONE (08:56)
[2019-03-06] MEDS ORDERED: ePHEDrine sulfate 50 MG/ML AMP ONE (08:56)
[2019-03-06] MEDS ORDERED: fentaNYL citrate 100 MCG/2 ML VIAL ONE (08:56)
[2019-03-06] MEDS ORDERED: fentaNYL 2MCG/ML ROPIV 1.25MG/ML 100 ML BAG EPI ONE (08:56)
[2019-03-06] MEDS ORDERED: PENICILLIN G POTASSIUM 6 MU in DEXTROSE 5% 250 ML IV ONE (09:00)
--- NOTE | 2019-03-06 09:10 | History & Physical Report ---
Date of Service March 06, 2019 Assessment & Plan (1) with 37 or more completed weeks gestation: category one strip. gbs unknown. will presumptively treat. Unlikely will get 2 doses. vertex by ultrasound. Patient desires pain management. Will try to get epidural/spinal. Anticipate . (2) Normal labor: History of Present Illness Chief Complaint: contractions Primary Care Provider: NO PCP Patient is a 24yowf with iup at 37 weeks who presents to labor and delivery with contractions starting at 7am. no lof, no vb. +fm. complicated by poor care. Had GDM diagnosed at 36 weeks with essentially no treatment. Had MFM consult for questionable pericardial effusion. None seen and echo normal. Patient has a seizure hx/vasovagal syndrome and declined neuro consult. Was on Topamax for sexiures and migraines and d/c. Last seizure activity was over a year ago. Not taking in . Declined neuro consult. hx of depression, no meds. Inadequate panorama, never redrawn. Poor dentition. 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 labs--O+/ab-/ri/rprnr/hiv-/hepb-/gc/ct-/ 16 week gtt nl/28 week gtt 140/ failed 2 hr at about 36 weeks/gbs unknown Allergies Allergy/AdvReac Type Severity Reaction Status Date / Time mivacurium Allergy Mild Verified 03/01/19 15:02 azithromycin [From Zithromax] Allergy Verified 03/01/19 15:02 TOMATO SAUCE Allergy Intermediate HIVES Uncoded 02/15/19 08:57 Home Medications Home Medications Medication Instructions Recorded Confirmed Type 1 tab PO DAILY 12/28/18 03/01/19 History vitamin,calcium,dmailplb-yroe-dlszn acid tablet Patient History Medical History Seizure disorder H/O hemorrhage, currently History of chicken pox History of depression History of herpes zoster History of kidney stones History of shingles Surgical History S/P appendectomy Family History Grandmother (Paternal) Diabetes Mother History of blood clots Brother Thyroid disease Father Hypertension Social History Preferred Language: [place]e Beliefs That Will Affect Care: None marital status: Current Living Situation: Family Current Living Situation Comment: spouse and children Smoking Status: Current every day smoker packs per day: 0.5 ; Second Hand Exposure: No ; Hx Alcohol Use: No Hx Substance Use: No OB History g1--02/03, 38 weeks, 7#9 oz, , pph g2--10/06, 39 weeks, 7#15 oz, , [employer] History no stds, no abnl paps Review of Systems All systems reviewed & are unremarkable except as noted in HPI & below Physical Exam Constitutional: WD/WN, vitals as above Gastrointestinal (Abdomen): soft, nt, gravid Psychiatric: A+Ox3, euthymic affect Genitourinary: cx--8/100/bulging bag toco--q 2-3 min efm--130s wtih mod variability, accels to 160s, no decels Results & Data Vital Signs (Past 12 Hours) Vital Signs Pulse BP 03/06/19 08:43 72 126/80 Code Status & VTE Plan VTE Prophylaxis Plan VTE Prophylaxis will be ordered: No
[2019-03-06 09:32] LABS: Hematocrit (blood only) 32.6 % (37-47); Hemoglobin 11.1 g/dL (12.0-16.0); Mean Corpuscular Hemoglobin 29.8 pg (25-34); Mean Corpuscular Volume 87.4 fL (80-100); Mean Platelet Volume 11.4 fL (7.4-10.4); Platelet Count 196 K/uL (130-400); RDW Coefficient of Variation 13.5 % (11.5-14.5); RDW Standard Deviation 43.3 fL (36.4-46.3); Red Blood Count 3.73 M/uL (4.2-5.4); White Blood Count 15.34 K/uL (4.8-10.8)
[2019-03-06] MEDS: OXYTOCIN 30 UNITS/500 ML BAG IV PRN ×2 (09:35→10:09)
[2019-03-06] MEDS ORDERED: ACETAMINOPHEN 325 MG TAB PO PRN (09:49)
--- NOTE | 2019-03-06 09:54 | Delivery Summary ---
Vaginal Delivery Summary Date of Service March 06, 2019 Vaginal Delivery Summary Pre-operative Diagnosis: at 37 weeks, active labor, gbs unknown, GDM untreated Post-operative Diagnosis: same Procedure: , repair of first degree laceration EBL: 300cc Anesthesia: local infiltration of lidocaine to perineum Procedure: The patient pushed for one contraction to deliver a viable female in chanell position. The rest of the was then delivered rapidly wi thout difficulty. The baby was vigorous. The nose and mouth were bulb suctioned and the was placed in the maternal abdomen for drying and attention. Cord was clamped and cut at one minute of life. Cord blood obtained. Placenta delivered spontaneous, intact with a three vessel cord. Cervix/sulci/rectum were intact. A small first degree perineal laceration was repaired in the normal standard fashion. Hemostasis obtained with dilute pitocin and fundal massage. Apgars were 8/9. Mother and baby doing well at the end of the delivery.
--- NOTE | 2019-03-06 09:57 | Communication Note ---
Date of Service: March 06, 2019 Patient started c/o chest pain shortly after delivery. She thought it was secondary to her anxiety. Bleeding controlled. BP 125/78. Pulse is in the 4 0s, regular. Her pulse was in the 70s during active labor. pulse 100% on room air. Will get stat EKG and monitor closely.
--- NOTE | 2019-03-06 10:11 | Communication Note ---
Date of Service: March 06, 2019 Patient sitting and drinking soda. EKG shows sinus bradycardia. She notes she has a sharp pain in her chest and a squeezing sensation. Given that the patient is symptomatic from the bradycardia, have asked cards to come see the patient. consult initiated. Do not suspect mi/pe/afe given other stable vitals. Bleeding minimal.
--- NOTE | 2019-03-06 10:25 | Communication Note ---
Date of Service: March 06, 2019 Dr. Huerta from cards came by and saw the patient. Reviewed EKG , listened to her heart. Suspect just a sinus don from the stress of labor, possible vagal component. Patient notes she is feeling a little bit better when talking with him. No intervention at this time. If still don at end of l and d observation, will repeat ekg to determine no change. In the meantime, proceed with routine pp care.
[2019-03-06] MEDS ORDERED: BENZOCAINE 20% AER SPR 82.5 GM CAN EXT PRN (11:02)
[2019-03-06] MEDS ORDERED: SUPERCREAM 0.870% 15 GM JAR EXT PRN (11:02)
[2019-03-06] MEDS ORDERED: OXYTOCIN 30 UNITS/500 ML BAG IV PRN (11:02)
[2019-03-06] MEDS ORDERED: HYDROCORTISONE ACETATE 25 MG SUPP PR PRN (11:02)
[2019-03-06] MEDS ORDERED: bisacodyL 10 MG SUPP PR PRN (11:02)
--- NOTE | 2019-03-06 11:38 | Communication Note ---
Date of Service: March 06, 2019 Patient has been up to the bathroom without incident and notes she is feeling better. pulse still in 40s-50s. Blood pressure stable, 100% on room air. Plan routine PP care and will not get another EKG as feeling better.
[2019-03-06] MEDS ORDERED: ALUMINUM/MAGNESIUM SUSP 30 ML UDC PO STA (11:54)
--- NOTE | 2019-03-06 12:00 | Communication Note ---
Date of Service: March 06, 2019 Patient was on the verge of falling asleep when she noted increased sharp chest pain, points to under midline left breast and radiates to her back. when she was acutely feeling like this, her pulse was 35. EKG done again and sinus bradycardia. Given this, feel now chest CT to r/o PE indicated. Dr. Huerta back up evaluating patient. Agreeable to CT. patient requested something for possible reflux. Although not classic for reflux, will give maalox. will continue to follow closely.
--- NOTE | 2019-03-06 12:18 | Cardiology Consultation ---
Date of Consultation March 06, 2019 Assessment & Plan (1) Chest pain syndrome: The patient has had 2 episodes of chest discomfort since her delivery this morning. Proceed with a CT scan of the chest to rule out a pulmonary embolism/amniotic embolism. (2) Sinus bradycardia: Suspect her sinus bradycardia is secondary to increased vagal output related to her chest pain syndrome. (3) Vasovagal syndrome: The patient carries a history of vasovagal syncope. History of Present Illness Attending Physician: Dina Guerrier MD, FACOG History of Present Illness Ms. Ontiveros is a 24-year-old female immediately who developed a chest pain syndrome and bradycardia. Discussed this was ordered to assist in her management. Of note, the patient was seen with Dr. James. The patient was in her usual state of health until earlier today when she delivered a healthy girl after a 20 minutes labor. Immediately after the delivery, the patient developed chest discomfort and her heart rate decreased from the mid 70s down to the mid 40s. An EKG was performed which noted sinus bradycardia at 44 beats per minute. There were no ST or T-wave changes. By the time I got to the patient's bedside, her discomfort was improving. Approximately 90 minutes later, the patient has left-sided chest discomfort again returned. There were no other associated symptoms such as shortness of breath, nausea, vomiting, or diaphoresis. The patient requested Maalox as she thought it may represent acid reflux. The patient has never experienced a cardiac event. She does carry history of vasovagal syncope. She denies exertional chest pain and limiting dyspnea. She further denies PND, orthopnea, palpitations, lower extremity edema, and claudication. We have discussed with the patient the the need for a CT scan of the chest. The patient understands and agrees to proceed. Past medical and surgical history 1. Vasovagal syncope 2. Seizure disorder 3. Migraine headaches 4. Spontaneous vaginal delivery x2 5. History of hemorrhage 6. Appendectomy Social history , lives with her and 2 children Smokes 1/2 pack of cigarettes daily No alcohol Family history Father of an OH at age 51 Mother is alive with diabetes Review of systems A 10 point review of systems was negative except for that described above. 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 HEENT exam is negative. Neck is supple with full carotid upstrokes. There are no carotid bruits. Jugular venous pressure is flat at 90. There is no thyromegaly. Cardiovascular exam reveals a regular rhythm with a normal S1 and S2. No S3, S4, or murmurs are noted. Lungs are clear without rales, rhonchi, or wheezes. Abdomen is soft and nontender without bruits. Extremities reveal intact radial artery and posterior tibial pulses bilaterally. There is no peripheral edema. Results & Data Vital Signs (Past 12 Hours) Vital Signs Temp Pulse Resp BP Pulse Ox 03/06/19 12:11 48 L 106/64 03/06/19 12:10 56 L 99 03/06/19 12:08 49 L 92 03/06/19 12:05 48 L 99 03/06/19 12:00 46 L 99 03/06/19 11:55 49 L 114/57 L 98 03/06/19 11:50 41 L 100 03/06/19 11:45 48 L 100 03/06/19 11:40 43 L 20 112/56 L 99 03/06/19 11:35 43 L 100 03/06/19 11:31 58 L 93 03/06/19 11:30 42 L 100 03/06/19 11:25 43 L 104/58 L 100 03/06/19 11:20 45 L 100 03/06/19 11:15 42 L 100 03/06/19 11:10 60 20 123/80 99 03/06/19 11:05 42 L 99 03/06/19 11:00 46 L 100 03/06/19 10:55 47 L 123/79 100 03/06/19 10:50 46 L 100 03/06/19 10:45 48 L 100 03/06/19 10:40 46 L 20 131/76 100 03/06/19 10:36 57 L 94 03/06/19 10:35 56 L 94 03/06/19 10:29 44 L 100 03/06/19 10:25 44 L 20 107/66 03/06/19 10:24 48 L 100 03/06/19 10:19 44 L 100 03/06/19 10:14 45 L 100 03/06/19 10:11 50 L 20 132/60 03/06/19 10:09 56 L 95 03/06/19 10:04 55 L 100 03/06/19 09:59 44 L 100 03/06/19 09:55 46 L 20 131/76 100 03/06/19 09:54 47 L 100 03/06/19 09:49 54 L 100 03/06/19 09:39 70 20 129/83 03/06/19 09:04 36.5 C 20 03/06/19 08:43 72 126/80 Laboratory Results CBC notes a hemoglobin 11.5, hematocrit 34.8, white count 25.5, platelet count of [id number]. Diagnostic Findings EKG performed at 10:00 a.m. today noted sinus bradycardia at 44 beats per minute. No abnormalities identified. PG Care Time/CCT Total # of Minutes Spent Total Time Spent with Patient: Total time spent is greater than 50% in coord ination of care (as documented) at patient's floor/unit and/or counseling patient:
[2019-03-06 12:32] LABS: Hematocrit (blood only) 34.8 % (37-47); Hemoglobin 11.5 g/dL (12.0-16.0); Mean Corpuscular Hemoglobin 29.3 pg (25-34); Mean Corpuscular Volume 88.5 fL (80-100); Mean Platelet Volume 11.8 fL (7.4-10.4); Platelet Count 205 K/uL (130-400); RDW Coefficient of Variation 13.4 % (11.5-14.5); RDW Standard Deviation 43.8 fL (36.4-46.3); Red Blood Count 3.93 M/uL (4.2-5.4); White Blood Count 25.52 K/uL (4.8-10.8)
[2019-03-06 12:51] LABS: Basophils # (auto) 0.01 K/uL (0-0.2); Eosinophils # (auto) 0.02 K/uL (0-0.5); Eosinophils % (auto) 0.1 %; Immature Granulocytes # (auto) 0.14 K/uL (0.00-0.02); Immature Granulocytes % (auto) 0.5 %; Lymphocytes # (auto) 2.02 K/uL (1.2-3.4); Lymphocytes % (auto) 7.9 %; Monocytes # (auto) 0.92 K/uL (0.11-0.59); Monocytes % (auto) 3.6 %; Neutrophils # (auto) 22.41 K/uL (1.4-6.5); Neutrophils % (auto) 87.9 %
[2019-03-06 12:53] LABS: Albumin Level 2.6 gm/dl (3.4-5.0); BUN Creatinine Ratio 10.4 (10-20); Calcium 8.2 mg/dl (8.5-10.1); Creatinine Clr Calc Pharmacy 138.9 ml/min; Est GFR (African American) 148.3; Est GFR (Non-African American) 127.9; Potassium 3.6 mmol/L (3.5-5.1)
[2019-03-06 13:03] LABS: Albumin Globulin Ratio 0.8 (0.9-2); Bilirubin,Total 0.2 mg/dl (0.2-1); Globulin 3.3 gm/dl (2.5-4.0); Thyroid Stimulating Hormone 2.23 uIu/ml (0.300-4.500); Total Protein 5.9 gm/dl (6.4-8.2)
[2019-03-06] MEDS ORDERED: OPTIRAY 320 125ml IV PRN ×2 (13:30→13:35)
--- NOTE | 2019-03-06 13:52 | CT Scan Report ---
CT angio chest PE protocol CLINICAL HISTORY: 24 years-old Female presenting with atypical chest pain status post vaginal deliver y. TECHNIQUE: Multidetector CT angiography of the chest was performed after administration of intravenou s contrast. 3-D volumetric and/or maximum intensity projection (MIP) images were subsequently reconst ructed for review. IV contrast: Optiray 320. One or more dose lowering techniques were used consisten t with the principles of ALARA (as low as reasonably achievable), including automatic exposure contro l, mA or kV adjustment to individual patient size, and/or use of iterative reconstruction. COMPARISON: None. CT DOSE (mGy.cm): The estimated cumulative dose is 289.75 mGy.cm. FINDINGS: Level Designer topogram: Unremarkable. Pulmonary vasculature: The study is adequate for assessment of the pulmonary vascular tree. No filling defect within the pul monary arteries to suggest embolus. Main pulmonary artery is not enlarged. No flattening of the inter ventricular septum. No intracardiac filling defect. Reflux of contrast into the intrahepatic IVC. Remaining chest: Soft tissues: Normal thyroid and thoracic inlet. No axillary, supraclavicular, mediastinal, or hilar lymphadenopathy. Normal aorta. Normal heart size. No pericardial or pleural effusion. Upper abdomen n ormal. Lungs and airways: No pneumothorax. Central airways patent. Pulmonary arteries are not significantly enlarged relative to adjacent bronchi. No interlobular septal thickening. Minimal dependent changes l ikely atelectasis. Musculoskeletal: Normal osseous structures. IMPRESSION: 1. No evidence of pulmonary embolus. No acute intrathoracic pathology. Electronically signed by: Bulmaro Bardales M.D. 03/06/2019 1:51 PM
[2019-03-06] MEDS ORDERED: INFLUENZA VIRUS QUAD VACCINE 0.5 ML SYR IM ONE (15:00)
[2019-03-06] MEDS ORDERED: INFLUENZA ADMINISTRATION CHARGE ONE (15:00)
[2019-03-06] MEDS: IBUPROFEN 600 MG TAB PO PRN ×2 (17:47→21:11)
[2019-03-06] MEDS: DOCUSATE SODIUM 100 MG CAP PO SCH (20:40)
[2019-03-06] MEDS: OXYCODONE/ACETAMINOPHEN 5mg/325mg TAB PO PRN (21:11)
[2019-03-07] MEDS: IBUPROFEN 600 MG TAB PO PRN ×4 (02:51→19:57)
[2019-03-07] MEDS: OXYCODONE/ACETAMINOPHEN 5mg/325mg TAB PO PRN ×4 (02:51→19:57)
--- NOTE | 2019-03-07 05:11 | Obstetrical Progress Note ---
Date of Service March 07, 2019 Assessment & Plan (1) : 24 yo s/p VD @ 36w4d complicated by sinus bradycardia Sinus Bradycardia w/ chest pain - Cardiology consulted - CT: negative for PE - HR consistently in the 40's-50's - clinically asymptomatic, improving Hx. of Anxiety - previously on Lexapro, stopped due to and side effect profile - discussed PP blues vs. PP depression, reviewed warning signs to call/come in - suggested she talk with her PCP about management of her anxiety PPD# 1 - GBS unknown, Blood Type O+ - Feels well today. Eating well, voiding well, ambulating well. - Pain well controlled. - Routine care - After discharge will have [address] James. Supervising Physician Co-Signing Physician Notes Resident Physician Supervision Note: I interviewed and examined the patient. Discussed with Dr. Fernandez and agree with findings and plan as documented in the note. Any exceptions or clarifications are listed here: Doing well. Pulse stable in 40-50 range. Patient notes CP significantly improved. Will continue to monitor. Routine pp care. Documented By: Temi James MD, FACOG Subjective Doing well this morning. Pain is 2/10 currently. She was having some chest pain that was dull and described as similar to pain she has had with anxiety in the past. The pain occurs when she sits up. She does not feel more anxious, and states that she feels relaxed. She was previously on Lexapro but explained that she did not like the side effects of the medication. We discussed her talking with her PCP about other medications that could help with Anxiety. I discussed with her post blues and depression and that she should call or come in to be evaluated if she were having feelings of hurting herself or anyone else, or if she were feeling down or depressed for longer than 2 weeks. Review of Systems Review of Systems: Denies fever, chills, sweats Denies shortness of breath, difficulty breathing, chest pain, palpitations, chest pressure. Denies breast pain. Denies dysuria. Denies headache. Physical Exam Physical Exam: General: Alert, oriented. No acute distress. Cardiac: Regular rate and rhythm, no murmurs/rubs/gallops. Respiratory: Clear to auscultation anterior and posteriorly, no wheezes/ rales/rhonchi. No increased work of breathing. Symmetrical chest rise. No respiratory distress. Abdomen: Soft, nontender, nondistended. Bowel sounds present. Uterus: Uterine fundus firm, palpable 1 cm below umbilicus. Lower Extremities: No lower extremity edema or swelling. No deep calf pain. Maribel's negative bilaterally. Results & Data Vital Signs (Past 12 Hours) Vital Signs Temp Pulse Resp BP 03/07/19 04:00 36.7 C 50 L 18 112/72 03/06/19 23:00 36.7 C 42 L 18 106/70 03/06/19 20:00 37.0 C 42 L 18 138/74 PG Care Time/CCT Total # of Minutes Spent Total Time Spent with Patient: Total time spent is greater than 50% in coordination of care (as documented) at patient's floor/unit and/or counseling patient: Resident Activity Tracking Resident Involvement: Resident Care Provided Care Provided: OB Delivery
[2019-03-07 06:23] LABS: Hemoglobin 10.2 g/dL (12.0-16.0)
[2019-03-07] MEDS: DOCUSATE SODIUM 100 MG CAP PO SCH ×2 (08:25→21:07)
[2019-03-07] MEDS: PRENATAL VITAMIN 1 TAB PO SCH (08:25)
[2019-03-07] MEDS ORDERED: DIPHTHERIA/TETANUS/PERTUSSIS 0.5 ML SYR/VIAL IM ONE (09:00)
[2019-03-07] MEDS ORDERED: bisacodyL 5 MG TABEC PO SCH (20:00)
--- NOTE | 2019-03-08 05:16 | Obstetrical Progress Note ---
Date of Service March 08, 2019 Assessment & Plan (1) : 24 yo s/p VD @ 36w4d complicated by sinus bradycardia w/ chest pain, anxiety, and GDM Sinus Bradycardia w/ chest pain (resolved) - Cardiology consulted - CT: negative for PE - HR 64 this morning - clinically asymptomatic, chest pain resolved Hx. of Anxiety - previously on Lexapro, stopped due to and side effect profile - discussed PP blues vs. PP depression, reviewed warning signs to call/come in - suggested she discuss with her PCP the management of her anxiety GDM, diet controlled - diagnosed at 36 weeks - glucose 90 (03/06) - retest fasting glucose or A1c in 12 weeks to evaluate for development of diabetes PPD# 2 - GBS unknown, Blood Type O+ - Feels well today. Eating well, voiding well, ambulating well. - Pain well controlled. - Routine care - After discharge will have [address] James. Supervising Physician Co-Signing Physician Notes Resident Physician Supervision Note: I was present with Dr. Aleman during the history and exam. I discussed the case with the resident and agree with the findings and plan as documented in the note. Any exceptions or clarifications are listed here: doing well, bottle feeding, mood ok. ready for d/c home, instructions reviewed, plan 6wk pp check. Documented By: Mayra Doshi MD, FACOG Subjective Doing well this morning. Pain is 1/10 currently. She is no longer having any chest pain. I discussed with her post blues and depression and that she should call or come in to be evaluated if she were having feelings of hurting herself or anyone else, or if she were feeling down or depressed for longer than 2 weeks. Review of Systems Review of Systems: Denies fever, chills, sweats Denies shortness of breath, difficulty breathing, chest pain, palpitations, chest pressure. Denies breast pain. Denies dysuria. Denies headache. Physical Exam Physical Exam: General: Alert, oriented. No acute distress. Cardiac: Regular rate and rhythm, no murmurs/rubs/gallops. Respiratory: Clear to auscultation anterior and posteriorly, no wheezes/rales/rhonchi. No increased work of breathing. Symmetrical chest rise. No respiratory distress. Abdomen: Soft, nontender, nondistended. Bowel sounds present. Uterus: Uterine fundus firm, palpable 1 cm below umbilicus. Lower Extremities: No lower extremity edema or swelling. No deep calf pain. Maribel's negative bilaterally. Results & Data Vital Signs (Past 12 Hours) Vital Signs Temp Pulse Resp BP 03/08/19 00:05 36.7 C 64 20 110/65 03/07/19 19:40 36.6 C 46 L 18 119/71 PG Care Time/CCT Total # of Minutes Spent Total Time Spent with Patient: Total time spent is greater than 50% in coordination of care (as documented) at patient's floor/unit and/or counseling patient: Resident Activity Tracking Resident Involvement: Resident Care Provided Care Provided: OB Delivery
[2019-03-08] MEDS: DOCUSATE SODIUM 100 MG CAP PO SCH (07:35)
[2019-03-08] MEDS: PRENATAL VITAMIN 1 TAB PO SCH (07:35)
[2019-03-08] MEDS: IBUPROFEN 600 MG TAB PO PRN (07:35)
== END 2019-03-08 11:25 | disposition home or self-care (01) | DRG 807 ==
LOC: OPB 08:35 → 4S1 08:37 → 4S2 14:32